=== PATIENT | male | born 1940 | race Caucasian/White ===

== ENCOUNTER 2017-04-14 15:02 | Emergency (ER) | payer BC, OTHER ==
[2017-04-14 15:14] VITALS: BP 138/111
[2017-04-14] MEDS ORDERED: Morphine INJ* 2 MG/ML 1 ML CARPUJECT IV ONE (15:19)
[2017-04-14] MEDS ORDERED: Ondansetron INJ* 2 MG/ML VIAL IV ONE (15:20)
[2017-04-14] MEDS ORDERED: NS 0.9% 1000 ML* 1,000 ML IV ONE (15:30)
--- NOTE | 2017-04-14 15:30 | ED ---
Abdominal Pain/Male - HPI Summary HPI Summary: 76 yr old with intermittent left side abdominal pain for a couple of weeks. Today his pain got much worse, 10/10, radiates into his flank, associated with nausea and sweating. He states he had BM yesterday. Denies fever, chills. Symptoms make him double over holding his abdomen. Denies allergies. - History of Current Complaint Chief Complaint: UCAbdominalPain Stated Complaint: ABDOMINAL PAIN Time Seen by Provider: 04/14/17 15:08 Pain Intensity: 10 - Allergies/Home Medications Allergies/Adverse Reactions: Allergies Allergy/AdvReac Type Severity Reaction Status Date / Time No Known Allergies Allergy Verified 04/14/17 15:14 Home Medications: Home Medications 3 Eye Drops 04/14/17 [History] PMH/Surg Hx/FS Hx/Imm Hx Cardiovascular History: Reports: Hx Hypertension - Surgical History Surgery Procedure, Year, and Place: tonsils Infectious Disease History: No Infectious Disease History: Denies: Traveled Outside the [place] in Last 30 Days - Family History Known Family History: Positive: Hypertension - Social History Occupation: Retired Lives: With Family Alcohol Use: Rare Substance Use Type: Reports: None Smoking Status (MU): Former Smoker Review of Systems Constitutional: Negative Eyes: Negative Positive: Abdominal Pain, Nausea All Other Systems Reviewed And Are Negative: Yes Physical Exam Triage Information Reviewed: Yes Vital Signs On Initial Exam: Initial Vitals Temp Pulse Resp BP Pulse Ox 96.2 F 125 18 138/111 97 04/14/17 15:06 04/14/17 15:06 04/14/17 15:06 04/14/17 15:06 04/14/17 15:06 Vital Signs Reviewed: Yes Appearance: Positive: Pain Distress Skin: Positive: Warm, Skin Color Reflects Adequate Perfusion Head/Face: Positive: Normal Head/Face Inspection Eyes: Positive: EOMI ENT: Positive: Pharynx normal Neck: Positive: Nontender Respiratory/Lung Sounds: Positive: Clear to Auscultation, Breath Sounds Present Cardiovascular: Positive: RRR. Negative: Murmur Abdomen Description: Positive: Soft, Guarding - left upper and mid abdomen.. Negative: CVA Tenderness (R), CVA Tenderness (L), Distended, Pulsatile Mass Musculoskeletal: Positive: Strength/ROM Intact Neurological: Positive: Sensory/Motor Intact, Alert, Oriented to Person Place, Time, CN Intact II-III Psychiatric: Positive: Anxious - [place] Coma Scale Best Eye Response: 4 - Spontaneous Best Motor Response: 6 - Obeys Commands Best Verbal Response: 5 - Oriented Coma Scale Total: 15 Diagnostics - Vital Signs Vital Signs Temp Pulse Resp BP Pulse Ox 04/14/17 15:06 96.2 F 125 18 138/111 97 - Laboratory Lab Statement: Any lab studies that have been ordered have been reviewed, and results considered in the medical decision making process. Abdominal Pain Fem Course/Dx - Course Course Of Treatment: 76 yr old male in pain distress with left sided abdominal pain. AICHA Miguel at [facility] ER who is aware of patient coming. - Diagnoses Provider Diagnoses: Abdominal pain Discharge - Discharge Plan Condition: Good Disposition: TRANS HIGHER LVL OF CARE FAC Referrals: Greg Watson MD [Primary Care Provider] -
== END 2017-04-14 15:54 | disposition short-term general hospital (02) ==
LOC: UCCORT 15:02
DX: R10.12 Left upper quadrant pain (principal); R11.0 Nausea; R61 Generalized hyperhidrosis; I10 Essential (primary) hypertension; Z87.891 Personal history of nicotine dependence
CPT/HCPCS: 96374; 96375; 99213; G0463; J2270; J2405

== ENCOUNTER 2017-11-20 11:06 | Emergency (ER) | payer MEDICARE, OTHER ==
[2017-11-20 11:14] VITALS: BP 120/70
[2017-11-20] MEDS ORDERED: Albuterol/Ipratropium NEB.SOL* Albuterol 2.5 MG/Ipratropium 0.5 MG 3 ML INH ONE (11:36)
[2017-11-20] MEDS ORDERED: Albuterol/Ipratropium NEB.SOL* Albuterol 2.5 MG/Ipratropium 0.5 MG 3 ML ONE (11:37)
--- NOTE | 2017-11-20 11:44 | UC ---
Respiratory Complaint HPI - HPI Summary HPI Summary: Patient accompanied by ex-. Patient states he has had increasing shortness of breath for the past 2 weeks. 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 He states he has had a chronic cough for several months and he has phlegm but 'cannot bring it up' and has tried inhalers with no avail. He states last time he had pneumonia was 5 years ago. states he is always cold and has chills but denies any fever; quit smoking in 1985. He has history of metastasic lung cancer and he is under the care of [facility] oncology, Dr. Cantrell. Ex- states his last PET scan must have been around September and his tumor has not been affected by chemotherapy and continues to spread. - History of Current Complaint Chief Complaint: UCRespiratory Stated Complaint: SOB Time Seen by Provider: 11/20/17 11:20 Hx Obtained From: Patient Onset/Duration: Gradual Onset, Lasting Weeks Severity Initially: Moderate Severity Currently: Moderate Pain Intensity: 0 Character: Cough: Productive Alleviating Factors: Nothing Associated Signs And Symptoms: Positive: Dyspnea - Risk Factors Pulmonary Embolism Risk Factors: Malignancy Cardiac Risk Factors: Hypertension, Elevated Lipids Pseudomonas Risk Factors: Negative Tuberculosis Risk Factors: Negative - Allergies/Home Medications Allergies/Adverse Reactions: Allergies Allergy/AdvReac Type Severity Reaction Status Date / Time No Known Allergies Allergy Verified 04/14/17 15:14 Home Medications: Home Medications Brimonidine P 0.15%(NF) [Alphagan P 0.15%(NF)] 1 drop BOTH EYES DAILY 11/20/17 [ History Confirmed 11/20/17] Cholecalciferol (Vitamin D3) [Vitamin D3] 1,000 unit PO DAILY 11/20/17 [History Confirmed 11/20/17] Dorzolamide 2% OPTH (NF) [Trusopt 2% OPTH (NF)] 1 drop BOTH EYES DAILY 11/20/17 [History Confirmed 11/20/17] Folic Acid TAB* [Folvite TAB*] 1 mg PO DAILY 11/20/17 [History Confirmed ] Latanoprost/Pf [Latanoprost 0.005% Eye Drop] 1 drop BOTH EYES DAILY 11/20/17 [ History Confirmed 11/20/17] Lisinopril/HCTZ 10.5(NF) [Zestoretic 12/17.5(NF)] 1 tab PO DAILY 11/20/17 [ History Confirmed 11/20/17] Melatonin/Pyridoxine HCl (B6) [Melatonin 10 mg Tablet] 1 tab PO BEDTIME [History Confirmed 11/20/17] Metoprolol Succinate 50 mg PO DAILY 11/20/17 [History Confirmed 11/20/17] Pantoprazole TAB (NF) [Protonix TAB (NF)] 40 mg PO DAILY 11/20/17 [History Confirmed 11/20/17] Sennosides [Senna] 8.6 mg PO DAILY 11/20/17 [History Confirmed 11/20/17] Vit A/Vit C/Vit E/Zinc/Copper [Preservision Areds Softgel] 1 each PO DAILY 11/20 [History Confirmed 11/20/17] traZODone TAB* [Desyrel TAB*] 50 mg PO DAILY 11/20/17 [History Confirmed ] PMH/Surg Hx/FS Hx/Imm Hx Previously Healthy: No Endocrine History: Dyslipidemia Cardiovascular History: Hypertension GI/ History: Gastroesophageal Reflux - Surgical History Surgical History: Yes Surgery Procedure, Year, and Place: tonsils. PORT-A-CATH. MULTIPLE BIOPSIES - Family History Known Family History: Positive: Hypertension - Social History Alcohol Use: Rare Substance Use Type: None Smoking Status (MU): Former Smoker When Did the Patient Quit Smoking/Using Tobacco: 1985 - Immunization History Hx Tetanus, Diphtheria Vaccination: No Vaccination Up to Date: Yes Review of Systems Constitutional: Negative Respiratory: Shortness Of Breath Is Patient Immunocompromised?: Yes All Other Systems Reviewed And Are Negative: Yes Physical Exam Triage Information Reviewed: Yes Appearance: No Pain Distress, Thin Vital Signs: Initial Vital Signs Temp 97.5 F 11/20/17 11:09 Pulse 106 11/20/17 11:09 Resp 24 11/20/17 11:09 BP 120/70 11/20/17 11:09 Pulse Ox 98 11/20/17 11:09 Vital Signs Reviewed: Yes Eyes: Positive: Conjunctiva Clear ENT: Positive: Hearing grossly normal, Pharynx normal, TMs normal, Uvula midline Neck: Positive: Supple, Nontender Respiratory: Positive: Chest non-tender, No respiratory distress, No accessory muscle use, Rhonchi Cardiovascular: Positive: RRR, No Murmur, Pulses Normal, Brisk Capillary Refill Abdomen Description: Positive: Nontender, Soft, Hepatomegaly Bowel Sounds: Positive: Present Musculoskeletal: Positive: Strength Intact, ROM Intact, Edema @ - ankles Psychological: Positive: Normal Response To Family, Age Appropriate Behavior Skin: Positive: Other - subacute skin tears on both forearms, with granulation tissue, no bleeding Diagnostic Evaluation - Laboratory O2 Sat by Pulse Oximetry: 98 Respiratory Course/Dx - Course Course Of Treatment: Duoneb nebulization was administered at the with clinical response, lungs were clear after treatment. Chest xray reveals right lung base infiltrate and enlargement of right hilar lung mass compared to study on August 26, 2017. Augmentin started at and prescribed to complete treatment for 10 days. Follow up with PCP in 2 days and to set up home nebulizer. RTC or ER if symptoms do not respond to medications or worsen. - Differential Dx/Diagnosis Provider Diagnoses: RLL pneumonia. Metastasic lung cancer Discharge - Sign-Out/Discharge Documenting (check all that apply): Patient Departure All imaging exams completed and their final reports reviewed: Yes - Discharge Plan Condition: Stable Disposition: HOME Patient Education Materials: Bacterial Pneumonia (ED), Amoxicillin/Clavulanate Potassium (By mouth), Ipratropium (By breathing), Albuterol (By breathing) Referrals: Greg Watson MD [Primary Care Provider] - Additional Instructions: Please take the antibiotic as prescribed Please follow up with your primary care physician to set up a nebulizer at home and to make sure you have all your vaccinations Prescriptions of nebulizing solutions have been sent to your pharmacy - Billing Disposition and Condition Condition: STABLE Disposition: Home
--- NOTE | 2017-11-20 12:28 | RAD ---
INDICATION: Shortness of breath. COMPARISON: Comparison is made with prior chest x-ray studies from July 19, 2014 and August 26, 2017. TECHNIQUE: Dual-energy PA and lateral views of the chest were obtained. FINDINGS: The heart is within normal limits in size. There is a central venous catheter entering on the right side. The catheter tip projects at the right atrial superior vena caval junction. There is enlargement of the right hilum which is progressed from the prior exam suspicious for a mass. There is a small right basilar infiltrate. No pleural effusion is seen. The results of this exam were called to referring clinician. On discussion the patient has known metastatic lung cancer. IMPRESSION: 1. RIGHT HILAR MASS SLIGHTLY INCREASED IN SIZE. 2. SMALL RIGHT BASILAR INFILTRATE.
[2017-11-20] MEDS ORDERED: Amoxicillin/Clavulanate TAB* 875 MG PO ONE (12:49)
== END 2017-11-20 13:02 | disposition home or self-care (01) ==
LOC: UCCORT 11:06
DX: J18.9 Pneumonia, unspecified organism (principal); C78.00 Secondary malignant neoplasm of unspecified lung; K21.9 Gastro-esophageal reflux disease without esophagitis; I10 Essential (primary) hypertension; Z87.891 Personal history of nicotine dependence
CPT/HCPCS: 71046; 93005; 99212; A9270-GY; G0463